=== PATIENT | female | born 1960 | race Caucasian/White ===

== ENCOUNTER 2020-07-13 09:15 | Outpatient (CLI) | payer OTHER ==
[2011-06-01 06:17] VITALS: BMI 40.4
== END 2020-07-13 23:59 | disposition home or self-care (01) ==
LOC: D.MAMMO 09:15
PROVIDERS: ATTEND Family Medicine
DX: Z12.31 Encounter for screening mammogram for malignant neoplasm of breast (principal)

== ENCOUNTER → 2020-07-15 08:02 | Outpatient (CLI) | payer OTHER ==
[2011-06-01 06:17] VITALS: BMI 40.4
[2020-07-15 08:52] LABS: CREATININE - SERUM 1.1 mg/dL (0.6-1.3)
== END | disposition home or self-care (01) ==
LOC: D.CT 08:02
PROVIDERS: ATTEND Family Medicine
DX: I70.213 Atherosclerosis of native arteries of extremities with intermittent claudication, bilateral legs (principal)

== ENCOUNTER → 2020-07-21 08:46 | Outpatient (CLI) | payer OTHER ==
[2011-06-01 06:17] VITALS: BMI 40.4
== END | disposition home or self-care (01) ==
LOC: D.US 08:46
PROVIDERS: ATTEND Family Medicine
DX: R19.00 Intra-abdominal and pelvic swelling, mass and lump, unspecified site (principal)